=== PATIENT | female | born 1990 | race African-American/Black ===

== ENCOUNTER 2016-11-09 19:26 | Emergency (ER) | payer OTHER ==
[2016-11-09] MEDS ORDERED: Acetaminophen 500 MG TAB ONE (19:48)
[2016-11-09] MEDS ORDERED: Ondansetron ODT 4 MG TAB ONE (20:56)
[2016-11-09] MEDS ORDERED: cloNIDine HCl 0.1 MG TAB ONE (22:01)
== END 2016-11-09 22:59 | disposition home or self-care (01) ==
LOC: ERS 19:26
DX: R50.9 Fever, unspecified (principal); R11.2 Nausea with vomiting, unspecified; I10 Essential (primary) hypertension
CPT/HCPCS: 87081; 87430; 99283; Q0162

== ENCOUNTER 2017-02-19 19:49 | Emergency (ER) | payer OTHER ==
[2017-02-19] MEDS ORDERED: Ibuprofen 800 MG TAB ONE (21:29)
[2017-02-19] MEDS ORDERED: Benzonatate 100 MG CAP ONE (21:30)
== END 2017-02-19 21:40 | disposition home or self-care (01) ==
LOC: ERS 19:49
DX: J06.9 Acute upper respiratory infection, unspecified (principal); I10 Essential (primary) hypertension
CPT/HCPCS: 87081; 87430; 99283

== ENCOUNTER 2017-05-12 19:57 | Emergency (ER) | payer OTHER, SELFPAY ==
--- NOTE | 2017-05-12 21:33 | RAD ---
RIGHT SHOULDER THREE VIEWS: HISTORY: Right shoulder pain. FINDINGS: No evidence of fracture or dislocation. The AC joint appears normally aligned. IMPRESSION: Unremarkable exam. POS: [facility]
[2017-05-12] MEDS ORDERED: Ketorolac Tromethamine 30 MG/ML VIAL ONE (22:33)
== END 2017-05-12 22:41 | disposition home or self-care (01) ==
LOC: ERS 19:57
DX: S43.421A Sprain of right rotator cuff capsule, initial encounter (principal); I10 Essential (primary) hypertension; F41.9 Anxiety disorder, unspecified; Z79.899 Other long term (current) drug therapy; X50.0XXA Overexertion from strenuous movement or load, initial encounter
CPT/HCPCS: 96372; J1885

== ENCOUNTER 2017-05-16 16:27 | Emergency (ER) | payer SELFPAY ==
[2017-05-16 17:02] LABS: #Lymphocytes 1.1 thou/uL (1.20-3.40); #Monocytes 0.3 thou/uL (0.11-0.59); #Neutrophils 9.1 thou/uL (1.40-6.50); %Basophils 0.2 % (0.0-1.0); %Eosinophils 0.4 % (0.0-10.0); %Lymphocytes 10.3 % (21.0-51.0); %Monocytes 3.2 % (0.0-10.0); Mean Corpuscular HGB CONC 32.1 g/dL (32.0-36.0); Mean Corpuscular Hemoglobin 24.4 pg (27.0-31.0); Mean Corpuscular Volume 76.1 fl (81.0-99.0); Platelet Count 341 thou/uL (130-400); RBC Distribution Width 15.8 % (11.5-14.5); Red Blood Cell (RBC) Count 4.91 mill/uL (4.20-5.40); White Blood Cell (WBC) Count 10.6 thou/uL (4.8-10.8)
[2017-05-16 17:03] LABS: Bilirubin Negative (Negative); Blood, Urine Large (Negative); Clarity CLOUDY (Clear); Glucose, Urine (Dipstick) Negative (Negative); Leukocyte Trace (Negative); Nitrite Negative (Negative); Protein, Urine (Dipstick) Negative (Neg-Trace); Specific Gravity, Urine 1.019 (1.002-1.036); Urobilinogen 0.2 mg/dL (0.2-1.0); pH, Urine 5.5 (5.0-9.0)
[2017-05-16 17:06] LABS: Bacteria/HPF 1+ HPF (None Seen); Hyaline Casts/LPF 0-3 HYALINE CAST LPF (0-3 Hyaline); Pathc Cast-AUWi Flag 0.29 (0-2.49); WBC/HPF 0-3 HPF (0-3)
[2017-05-16 17:09] LABS: Pregnancy Test - Urine (BHCG) Negative (Negative); Pregu Control Background? CLEAR/WHITE (CLR/WHITE); Pregu Control Bar Appear? YES (CONTROL BAR); Specific Gravity 1.019 (1.002-1.036)
[2017-05-16 17:12] LABS: Yeast-AUWi Flag 83.7 (0-25.0)
[2017-05-16 17:23] LABS: Yeast-All Forms None Seen HPF (None Seen)
[2017-05-16 17:23] LABS: ALT (SGPT) 26 U/L (8-55); AST (SGOT) 25 U/L (5-34); Albumin 4.1 g/dL (3.5-5.0); Alkaline Phosphatase 144 U/L (40-150); Anion Gap 15 mmol/L (10-20); BUN (Urea Nitrogen) 10 mg/dL (7.0-18.7); Bilirubin, Total 0.4 mg/dL (0.2-1.2); Calc. Creatinine Clearance 0 mL/min (70-130); Calcium 9.8 mg/dL (7.8-10.44); Carbon Dioxide 22 mmol/L (22-29); Chloride 107 mmol/L (98-107); Estimated GFR-MDRD Greater than 90; Globulin 3.5 g/dL (2.4-3.5); Glucose 112 mg/dL (70-105); Potassium 4.1 mmol/L (3.5-5.1); Protein, Total 7.6 g/dL (6.0-8.3); Sodium 140 mmol/L (136-145)
[2017-05-16] MEDS ORDERED: Ondansetron ODT 4 MG TAB ONE (18:51)
== END 2017-05-16 20:03 | disposition home or self-care (01) ==
LOC: ERS 16:27
DX: K52.9 Noninfective gastroenteritis and colitis, unspecified (principal); F41.9 Anxiety disorder, unspecified; I10 Essential (primary) hypertension
CPT/HCPCS: 36415; 80053; 81003; 81015; 81025; 82150; 83605; 83690; 85025; 87086; 96372; Q0162

== ENCOUNTER 2020-04-05 23:15 | Emergency (ER) | payer SELFPAY ==
[2020-04-05] MEDS ORDERED: Ketorolac Tromethamine 30 MG/ML VIAL ONE (23:51)
[2020-04-05] MEDS ORDERED: cloNIDine 0.1 MG TAB ONE (23:51)
[2020-04-06 00:35] LABS: Pregnancy Test - Urine (BHCG) Negative (Negative); Pregu Control Background? CLEAR/WHITE (CLR/WHITE); Pregu Control Bar Appear? YES (CONTROL BAR); Specific Gravity 1.025 (1.002-1.036)
[2020-04-06 00:36] LABS: Bacteria/HPF None Seen HPF (None Seen); Bilirubin Negative (Negative); Blood, Urine 3+ (Negative); Clarity Turbid (Clear); Glucose, Urine (Dipstick) Normal (Negative); Ketone, Urine Negative (Negative); Leukocyte 75 Leu/uL (Negative); Nitrite Negative (Negative); Protein, Urine (Dipstick) 100 mg/dL (Neg-Trace); RBC/HPF Greater than 50 HPF (0-3); Specific Gravity, Urine 1.025 (1.002-1.036); Squamous Epithelial 0-3 HPF (0-3); Urobilinogen Normal mg/dL (Less than 2)
== END 2020-04-06 01:12 | disposition home or self-care (01) ==
LOC: ERS 23:15
DX: R51.9 Headache, unspecified (principal); R10.9 Unspecified abdominal pain; I10 Essential (primary) hypertension; Z79.899 Other long term (current) drug therapy
CPT/HCPCS: 81003; 81015; 81025; 96372; 99284; J1885

== ENCOUNTER 2020-08-28 11:56 | Emergency (ER) | payer SELFPAY | END 2020-08-28 13:40 | disposition home or self-care (01) | LOC: ERS 11:56 | DX: R11.2 Nausea with vomiting, unspecified (principal) | CPT/HCPCS: 81003; 99284 ==

== ENCOUNTER 2020-09-08 18:16 | Emergency (ER) | payer OTHER, SELFPAY ==
[~2020-09-08 18:16] MED LIST: Iopamidol-370 76% 500 ML 1 ML ONE
[2020-09-08] MEDS ORDERED: Ketorolac Tromethamine 30 MG/ML VIAL ONE (18:52)
[2020-09-08] MEDS ORDERED: Morphine 4 MG/ML VIAL ONE (18:52)
== END 2020-09-08 19:56 | disposition home or self-care (01) ==
LOC: ERS 18:16
DX: S30.1XXA Contusion of abdominal wall, initial encounter (principal); S00.83XA Contusion of other part of head, initial encounter; S20.212A Contusion of left front wall of thorax, initial encounter; V89.2XXA Person injured in unspecified motor-vehicle accident, traffic, initial encounter
CPT/HCPCS: 70450; 71260; 72125; 74177; 96374; G0390; J1885; J2270; Q9967

== ENCOUNTER 2021-01-29 15:30 | Emergency (ER) | payer OTHER, SELFPAY ==
[2021-01-29] MEDS ORDERED: Ketorolac Tromethamine 30 MG/ML VIAL ONE (17:27)
== END 2021-01-29 17:45 | disposition home or self-care (01) ==
LOC: ERS 15:30
DX: M54.50 Low back pain, unspecified (principal); I10 Essential (primary) hypertension; Z79.82 Long term (current) use of aspirin; Z79.899 Other long term (current) drug therapy; V49.50XA Passenger injured in collision with unspecified motor vehicles in traffic accident, initial encounter
CPT/HCPCS: 96372; 99282; J1885

== ENCOUNTER 2021-05-17 03:40 | Emergency (ER) | payer OTHER, SELFPAY ==
[2021-05-17] MEDS ORDERED: Famotidine 20 MG TAB ONE (04:46)
[2021-05-17] MEDS ORDERED: Ketorolac Tromethamine 30 MG/ML VIAL ONE (04:46)
[2021-05-17] MEDS ORDERED: Metoclopramide HCl 10 MG TAB ONE (04:47)
== END 2021-05-17 06:01 | disposition home or self-care (01) ==
LOC: ERS 03:40
DX: R51.9 Headache, unspecified (principal); I10 Essential (primary) hypertension; Z79.899 Other long term (current) drug therapy
CPT/HCPCS: 70450; 96372; J1885